=== PATIENT | male | born 1980 | race Caucasian/White ===

== ENCOUNTER 2016-07-04 22:50 | Emergency (ER) | payer BC, OTHER ==
[~2016-07-04] VITALS: Ht 170.2 cm; Wt 67.5 kg
[~2016-07-04 22:50] MED LIST: AMOX500C3 PO; PRED10TA PO
[2016-07-04 22:54] VITALS: TEMP 36.7; Ht 170.2 cm; Wt 67.5 kg
[2016-07-04] MEDS ORDERED: SODIUM CHLORIDE 0.9% 1000ML 1,000 ML IV STA (23:13)
[2016-07-04] MEDS ORDERED: ALBUT/IPRATROP 3MG/0.5MG NEB 3 ML VIAL INH STA (23:13)
[2016-07-04] MEDS ORDERED: METHYLPREDNISOLONE 125 MG VIAL IV STA (23:13)
[2016-07-04] MEDS ORDERED: OPTIRAY 320 IV PRN (23:30)
[2016-07-04 23:39] VITALS: O2SAT 99
[2016-07-04 23:41] LABS: BASO % 0.1 %; BASO ABS # 0.01 K/uL (0-0.2); COMPLETE YES; EOS % 0.3 %; IG% 0.9 %; LYMPH % 22.1 %; LYMPH ABS # 2.05 K/uL (1.2-3.4); MEAN CELL VOLUME 83.3 fL (80-100); MEAN CORPUSCULAR HEMOGLOBIN 29.7 pg (25-34); MEAN CORPUSCULAR HGB CONC 35.7 g/dl (32-36); MEAN PLATELET VOLUME 8.9 fL (7.4-10.4); MONO % 5.3 %; NEUT % 71.3 %; PLATELET COUNT 226 K/uL (130-400); RED BLOOD COUNT 4.44 M/uL (4.7-6.1); WHITE BLOOD COUNT 9.28 K/uL (4.8-10.8)
[2016-07-04] MEDS ORDERED: CLR10 PO (23:57)
[2016-07-04 23:59] LABS: ALT/SGPT 53 U/L (12-78); AST/SGOT 27 U/L (15-37); BLOOD UREA NITROGEN 12 mg/dl (7-18); BUN/CREATININE RATIO 11.1 (10-20); CALCIUM 8.2 mg/dl (8.5-10.1); CARBON DIOXIDE 27 mmol/L (21-32); CHLORIDE 105 mmol/L (98-107); GLUCOSE 184 mg/dl (70-99); MAGNESIUM 2.1 mg/dl (1.8-2.4); POTASSIUM 3.3 mmol/L (3.5-5.1); SODIUM 141 mmol/L (136-145)
[2016-07-04] MEDS ORDERED: FLUT0.15 NAE (23:59)
[2016-07-04] MEDS ORDERED: VNTHFA/IN INH (23:59)
[2016-07-05 00:02] LABS: ALB/GLOB RATIO 1.1 (0.9-2); ALKALINE PHOSPHATASE 107 U/L (45-117); C-REACTIVE PROTEIN < 0.29 mg/dl (0-0.29)
[2016-07-05 00:11] LABS: PARTIAL THROMBOPLASTIN RATIO 1.1
[2016-07-05] MEDS ORDERED: LIDOCAINE HCL 2% VISC SOLN 20 ML UDC ONE (01:28)
[2016-07-05] MEDS ORDERED: ALUMINUM/MAGNESIUM SUSP 30 ML UDC ONE (01:28)
[2016-07-05] MEDS ORDERED: GI COCKTAIL PO ONE (01:30)
[2016-07-05] MEDS ORDERED: PANT40TA PO (02:18)
--- NOTE | 2016-07-05 02:18 | EMERGENCY ROOM VISIT NOTE ---
History First contact with patient: 23:02 Chief Complaint: COUGH Stated Complaint: COUGH, SOB Nursing Triage Summary: COUGH FOR 2 WEEKS HAS BEEN SEEN BY PCP WITH OUT ANY RELIEF FROM COUGH History of Present Illness The patient is a 35 year old male who presents to the Emergency Department by private vehicle for evaluation of his ongoing cough and shortness of breath. The patient reports that he initially started with symptoms of cough with progressively worsening shortness of breath over the past 3 weeks. 2 Fridays ago he was seen and placed on amoxicillin for sinus infection. He is had a flu swelling To Be Negative. In Appointment on Friday and the Provider Was Concerned for Possible Bronchitis Versus Pneumonia. He Was Placed on Prednisone As Well As an Inhaler. He has since had ongoing symptoms which have not changed despite the alleged treatment course. The shortness of breath and pleuritic pain was worse with prompt a visit to the emergency department today. He also complains of burning in his throat and neck. He was at his child's soccer practice today and reports that exertion made his symptoms much worse. He had a worsening cough as well as shortness of breath. He denies any medical history of asthma, bronchitis, pneumonia. He reports no personal cardiac history or significant family history of cardiac disease. He denies any history of blood clots or bleeding disorders. There is been no recent long- distance travel. He denies a smoking history. Patient rates his current discomfort as a 5/10. He denies any headaches, blurry vision, neck pain/ stiffness, nausea, vomiting, or abdominal pain. Review of Systems A complete 10-point Review of Systems was discussed with the patient, with pertinent positives and negatives listed in the History of Present Illness. All remaining Review of Systems questions can be considered negative unless otherwise specified. Past Medical/Surgical History Medical Problems: (1) No pertinent past medical history Family History Patient reports no known family medical history. Social History Smoking Status: Former Smoker Alcohol Use: occasionally Drug Use: none Marital Status: Housing Status: lives with family Occupation Status: employed Current/Historical Medications Scheduled Amoxicillin (Amoxil), 500 MG PO TID Fluticasone Propionate (Nasal) (Flonase Allergy Relief), 2 SPRAYS REMA DAILY Loratadine (Claritin), 10 MG PO DAILY Pantoprazole (Protonix), 40 MG PO DAILY Prednisone (Prednisone), PO UD Scheduled PRN Albuterol Hfa (Ventolin Hfa), 2 PUFFS INH Q6H PRN for SOB/Wheezing Allergies Coded Allergies: No Known Allergies (Verified , 07/04/16) Physical Exam Vital Signs Date Time Temp Pulse Resp B/P Pulse Ox O2 Delivery O2 Flow Rate FiO2 07/05/16 02:35 89 18 101/51 98 07/05/16 00:31 102 16 135/82 97 Room Air 07/04/16 23:39 86 16 126/72 99 Room Air 07/04/16 23:39 99 Room Air 07/04/16 23:35 88 07/04/16 22:54 36.7 72 20 133/76 99 Room Air Pain Rating (0-10): 5 Physical Exam VITAL SIGNS - Vital signs and nursing notes were reviewed. GENERAL - 35-year-old male appearing his stated age who is in no acute distress. Communicates well with provider and answers questions appropriately. HEAD - NC/AT. EYES - PERRL with EOMI bilaterally. Sclera anicteric. Palpebral conjunctiva pink and moist with no injection noted. EARS - No deformities of external structures noted on gross examination bilaterally. No pain elicited with palpation of the tragus bilaterally. External auditory canals without discharge or otorrhea. Tympanic membranes pearly blankenship without retraction or bulging. NOSE - Midline and without cyanosis. No epistaxis or purulent drainage noted. Septum midline without deviation or septal hematoma noted. MOUTH/OROPHARYNX - Without perioral cyanosis. Buccal mucosa pink and moist and without leukoplakia. Tongue midline with equal elevation of palate bilaterally. No tonsillar hypertrophy, erythema, or exudates noted. NECK - Neck with FROM. Supple to palpation. LUNGS - Chest wall symmetric without accessory muscle use, intercostals retractions, or central cyanosis. Normal vesicular breath sounds CTA B/L. No wheezes, rales, or rhonchi appreciated. CARDIAC - RRR with S1/S2. No murmur, rubs, or gallops appreciated. No reproducible tenderness to palpation appreciated over the anterior chest wall. ABDOMEN - Abdominal contour flat and without pulsations or visible masses. BS normoactive all four quadrants. No tenderness, palpable masses, hepatosplenomegaly, or ascites noted. EXTREMITIES - No clubbing or peripheral cyanosis. No pretibial edema present. +3 /5 radial and dorsalis pedis pulses palpated throughout. +5/5 strength noted in UE/LE bilaterally. NEUROLOGIC - Cranial nerves II through XII grossly intact. Sensory intact to light touch throughout. PSYCH - A&Ox3 and cooperates fully with examiner. Pt is very pleasant and interacts well with examiner. Medical Decision & Procedures ER Provider Diagnostic Interpretation: Radiological imaging and reports were reviewed by myself. Radiologist's Interpretation per [facility] as follows: CT CHEST With Contrast: No evidence of filling defect to suggest pulmonary embolism Thoracic aorta within limits No pericardial or pleural effusion No focal consolidation Laboratory Results 07/04/16 23:29 Red Blood Count 4.44, Mean Corpuscular Volume 83.3, Mean Corpuscular Hemoglobin 29.7, Mean Corpuscular Hemoglobin Concent 35.7, Mean Platelet Volume 8.9, Neutrophils (%) (Auto) 71.3, Lymphocytes (%) (Auto) 22.1, Monocytes (%) (Auto) 5.3, Eosinophils (%) (Auto) 0.3, Basophils (%) (Auto) 0.1, Neutrophils # (Auto) 6.62, Lymphocytes # (Auto) 2.05, Monocytes # (Auto) 0.49, Eosinophils # (Auto) 0.03, Basophils # (Auto) 0.01 07/04/16 23:29 Test 07/04/16 23:29 07/04/16 23:33 White Blood Count 9.28 K/uL (4.8-10.8) Red Blood Count 4.44 M/uL (4.7-6.1) Hemoglobin 13.2 g/dL (14.0-18.0) Hematocrit 37.0 % (42-52) Mean Corpuscular Volume 83.3 fL (80-100) Mean Corpuscular Hemoglobin 29.7 pg (25-34) Mean Corpuscular Hemoglobin Concent 35.7 g/dl (32-36) Platelet Count 226 K/uL (130-400) Mean Platelet Volume 8.9 fL (7.4-10.4) Neutrophils (%) (Auto) 71.3 % Lymphocytes (%) (Auto) 22.1 % Monocytes (%) (Auto) 5.3 % Eosinophils (%) (Auto) 0.3 % Basophils (%) (Auto) 0.1 % Neutrophils # (Auto) 6.62 K/uL (1.4-6.5) Lymphocytes # (Auto) 2.05 K/uL (1.2-3.4) Monocytes # (Auto) 0.49 K/uL (0.11-0.59) Eosinophils # (Auto) 0.03 K/uL (0-0.5) Basophils # (Auto) 0.01 K/uL (0-0.2) RDW Standard Deviation 40.5 fL (36.4-46.3) RDW Coefficient of Variation 13.4 % (11.5-14.5) Immature Granulocyte % (Auto) 0.9 % Immature Granulocyte # (Auto) 0.08 K/uL (0.00-0.02) Prothrombin Time 11.0 SECONDS (9.0-12.0) Prothromb Time International Ratio 1.0 (0.9-1.1) Activated Partial Thromboplast Time 27.3 SECONDS (21.0-31.0) Partial Thromboplastin Ratio 1.1 Anion Gap 9.0 mmol/L (3-11) Est Creatinine Clear Calc Drug Dose 88.5 ml/min Estimated GFR () 101.0 Estimated GFR (Non- 87.1 BUN/Creatinine Ratio 11.1 (10-20) Calcium Level 8.2 mg/dl (8.5-10.1) Magnesium Level 2.1 mg/dl (1.8-2.4) Total Bilirubin 0.3 mg/dl (0.2-1) Aspartate Amino Transf (AST/SGOT) 27 U/L (15-37) Alanine Aminotransferase (ALT/SGPT) 53 U/L (12-78) Alkaline Phosphatase 107 U/L (45-117) Total Creatine Kinase 134 U/L (39-308) Creatine Kinase MB 2.7 ng/ml (0.5-3.6) Creatine Kinase MB Ratio 2.0 (0-3.0) C-Reactive Protein < 0.29 mg/dl (0-0.29) Total Protein 6.6 gm/dl (6.4-8.2) Albumin 3.4 gm/dl (3.4-5.0) Globulin 3.2 gm/dl (2.5-4.0) Albumin/Globulin Ratio 1.1 (0.9-2) Lipase 194 U/L (73-393) Bedside Troponin I 0.000 ng/ml (0-0.045) Medications Administered Medications (Trade) Dose Ordered Sig/Aletha Route Start Time Stop Time Status Last Admin Dose Admin Albuterol/ Ipratropium (Duoneb) 3 ml NOW STAT INH 07/04/16 23:13 07/04/16 23:17 DC 07/04/16 23:32 3 ML Methylprednisolone Sodium Succinate 125 mg 125 mg NOW STAT IV 07/04/16 23:13 07/04/16 23:17 DC 07/04/16 23:33 125 MG Sodium Chloride (Nss 1000ml) 1,000 ml @ 125 mls/hr Q8H STAT IV 07/04/16 23:13 07/05/16 03:00 DC 07/04/16 23:33 125 MLS/HR Al Hydroxide/Mg Hydroxide (Maalox Susp) 30 ml STK-MED ONCE .ROUTE 07/05/16 01:28 07/05/16 01:29 DC 07/05/16 01:25 30 ML Lidocaine HCl (Viscous Lidocaine 2% Soln) 20 ml STK-MED ONCE .ROUTE 07/05/16 01:28 07/05/16 01:29 DC 07/05/16 01:25 20 ML Procedure Patient was placed on the automobile body customizer and monitored throughout the entire extent of their stay. In addition, the patient's pulse oximetry was monitored throughout the entire stay. Any abnormalities or aberrancies were addressed appropriately. ECG Indication: SOB/dyspnea Rate (beats per minute): 81 Rhythm: normal sinus Findings: no acute ischemic change, no ectopy Comparison ECG Date: no prior available ED Course Patient was seen and evaluated by myself. Labs were drawn, saline lock in place. EKG was obtained. CTA of the chest was ordered. Patient was hydrated with normal saline and a rate of 1 25 mL prior. He received 1 DuoNeb as well as IV Solu-Medrol. Laboratory results demonstrate no acute leukocytosis, worrisome anemia, or bandemia. The patient has no significant electrolyte abnormalities. Cardiac enzymes were negative. Troponin was negative. CT results as above. Laboratory results and imaging studies were reviewed with the patient who acknowledges understanding. The patient was provided a GI cocktail for ongoing symptoms. He did have some resolve of his symptoms with GI cocktail. The patient was provided Protonix to be used at home in addition to his ongoing medications. He has appointment tomorrow with his primary care provider. The patient was educated on worrisome symptoms for return visit to the emergency department. Patient discharged home afebrile and in good condition. Medical Decision Given the patient's presentation and stated complaint, I did elect to perform the above-mentioned workup. The patient has had ongoing symptoms for the last 2 -3 weeks. He's had an unremarkable chest x-ray as well as being placed on antibiotics and steroids without resolve of symptoms. Given his ongoing short of breath and pleuritic pain, I did elect to perform a CTA to evaluate the chest and lung structures. Patient is not hypoxic. He is not tachycardic. Cardiac enzymes are negative. CTA was otherwise unremarkable. The patient responded well to GI cocktail. He may be experiencing some seasonal allergies in addition to a resolving sinus infection and GERD. Regardless, the patient is a 41 on accommodation medications which are appropriate this point. I did add Protonix to his medication. He will has a follow-up appointment with his PCP tomorrow. He will return to the emergency department in the setting of any changing or worsening symptoms. Patient discharged home in good condition. In the evaluation and treatment of this patient, the following differential diagnoses were considered: CO, ASC, Dysrhythmia, Angina, Mediastinitis, GERD, Esophagitis, PE, Pneumonia, Bronchitis, Costochondritis, Rib Fracture, Zoster. Impression Primary Impression: Acute bronchitis Additional Impressions: Pleuritic chest pain Shortness of breath Departure Information Dispostion Home / Self-Care Condition GOOD Prescriptions Pantoprazole (Protonix) 40 Mg Tab 40 MG PO DAILY for 14 Days, #14 TAB Prov: Isma Colmenares, ELFEGO 07/05/16 Referrals Samm Woody M.D. (PCP) Patient Instructions My [facility] Additional Instructions Keep your follow-up appointment with your primary care provider tomorrow as scheduled. You should take Protonix as prescribed. This is a drug that will help with any possible indigestion that might be contributing to your pain/discomfort. You should take this medicine EVERY day for the best results. This medicine is not intended to be used for immediate relief of symptoms, but rather to reduce the risk of recurrence of symptoms. You can consider using TUMS/Maalox for relief of any indigestion that you might be experiencing. This drug is fast acting and can be used for immediate relief of your indigestion symptoms. You should eat a bland diet for the next few days. Some suggested bland dietary foods: Bananas, Rice, Applesauce, [place], or Boiled Chicken. These foods are easy to digest and help you to recover at a faster rate. All meals for the next few days should be small to scaffolding helper in bowel rest. For pain control, you can use the following [id number] medicines (if >12 yo): - Regular strength (325mg/tab) Tylenol (acetaminophen) 2 tabs every 4-6 hours as needed. Do not exceed 12 tablets in a 24 hour period. Avoid taking more than 4 grams (4000 mg) of Tylenol per day. This includes any other sources of acetaminophen you may take on a regular basis. - Regular strength (200 mg/tab) Advil (ibuprofen) 1-2 tabs every 4-6 hours as needed. Do not exceed a dose of 3200 mg per day. You should schedule a follow-up appointment with your Primary Care Provider in 2 -3 days for further evaluation from today's Emergency Department visit. Your Primary Care Provider should be involved in the addition of any new medications. Your Primary Care Provider may also refer you to a Transformation Manager, a doctor who specializes in the digestive system. Return to the Emergency Department if your current symptoms worsen despite treatment course outlined above, or if you develop any of the following symptoms : worsening abdominal pain, associated chest or back pain, worsening nausea/ vomiting, dizziness, shortness of breath, blood in your vomit, or fainting. Problem Qualifiers Primary Impression: Acute bronchitis Bronchitis organism: unspecified organism Qualified Codes: J20.9 - Acute bronchitis, unspecified
[2016-07-05 02:35] VITALS: BP 101/51; PULSE 89; O2SAT 98
--- NOTE | 2016-07-05 07:10 | DIAGNOSTIC IMAGING REPORT ---
CHEST CTA for PULMONARY ARTERIES CT DOSE: 305.02 mGy.cm HISTORY: Chest pain dyspnea TECHNIQUE: Multiaxial CT images of the chest were performed following the intravenous administration of contrast to evaluate the pulmonary arteries. Maximal intensity projection images were also obtained. COMPARISON STUDY: None. FINDINGS: There is a normal caliber thoracic aorta with no evidence for dissection. There is no evidence for pulmonary embolus. No pleural effusions. No pneumothorax. The liver and spleen are unremarkable. No mediastinal or hilar lymphadenopathy. The central airways are patent. The lungs are clear. 5 mm irregular nodular density right base. IMPRESSION: No evidence for pulmonary embolus. The lungs are clear. 5 mm nodular density/spiculated density right base. Three-month CT follow-up is suggested. Electronically signed by: Joe Hirsch M.D. 07/05/2016 7:08 AM Dictated Date/Time: 07/05/2016 7:07 AM
== END 2016-07-05 02:32 | disposition home or self-care (01) ==
LOC: C.EDB 22:51 → C.EDA 07-05 02:32
DX: J20.9 Acute bronchitis, unspecified (principal); R07.81 Pleurodynia; R06.02 Shortness of breath